=== PATIENT | female | born 1960 ===

== ENCOUNTER 2023-06-04 11:39 | Emergency (ER) | payer SELFPAY ==
[2023-06-04] VITALS (87 sets, daily range): BP systolic 90–202; BP diastolic 63–138
[2023-06-04 12:00] LABS: URINE BILIRUBIN - DIPSTICK Negative (NEGATIVE); URINE BLOOD DIPSTICK Trace-lysed (NEGATIVE); URINE GLUCOSE - DIPSTICK Negative (NEGATIVE); URINE KETONE Negative (NEGATIVE); URINE LEUK ESTERASE Negative (NEGATIVE); URINE NITRITE - DIPSTICK Negative (Negative); URINE PH 6.5 (4.5-8.0); URINE PROTEIN - DIPSTICK Negative (NEG-TRACE); URINE UROBILINOGEN - DIPSTICK 0.2 E.U./dL (0.2)
[2023-06-04 12:03] LABS: URINE COLOR Yellow
[2023-06-04 12:33] LABS: BASO% 0.7 % (0-3); EOS% 2.4 % (0-8); HEMATOCRIT 38.7 % (37.0-47.0); HEMOGLOBIN 12.6 g/dl (12.0-16.0); IMMATURE GRANULOCYTES 0.1 % (0.0-5.0); LYMPH% 30.4 % (15-41); MEAN CELL VOLUME 90.6 fL CALC (80.0-100.0); MEAN CORPUSCULAR HGB 29.5 pG CALC (26.0-32.0); MEAN CORPUSCULAR HGB CONC 32.6 g/dL CAL (32.0-36.0); MONO% 5.6 % (2-13); NEUT# 4.32 thou/uL (2.00-7.15); NEUT% 60.8 % (42-76); RED BLOOD COUNT 4.27 mill/uL (4.20-5.60); RED CELL DISTRI WIDTH 12.8 % (11.5-15.5)
[2023-06-04 12:42] LABS: ALBUMIN 4.5 g/dL (3.2-5.0); ALKALINE PHOSPHATASE 79 u/l (38-126); ANION GAP 12 (6-22 (CALC)); BILIRUBIN, TOTAL 0.4 mg/dL (0.02-1.3); BUN 9 mg/dL (8-23); BUN/CREATININE RATIO 11 (12-20 (CALC)); CARBON DIOXIDE 25 mmol/l (22-30); CHLORIDE 100 mmol/l (95-108); CREATININE 0.8 mg/dL (0.5-1.0); GFR FOR AFR.AMER. > 60 ML/MIN (>=60 (CALC)); GFR OTHER RACES > 60 ML/MIN (>=60 (CALC)); POTASSIUM 4.1 mmol/l (3.5-5.1); SGOT/AST 36 u/l (9-36); SODIUM 134 mmol/l (137-146); TOTAL CHOLESTEROL 244 mg/dl (0-199); TOTAL PROTEIN 7.5 g/dL (6.3-8.2); TOTAL TRIGLYCERIDES 88 mg/dl (0-149); VLDL CHOLESTROL 18 mg/dl (1-41 (CALC))
[2023-06-04 12:49] LABS: PROTHROMBIN TIME 9.5 SECONDS (9.0-12.5)
[2023-06-04 12:51] LABS: CALCULATED LDLCHOLESTEROL 77 mg/dL (62-129 (CALC)); CHOLESTEROL HDL RATIO 1.6 (<4.4 (CALC)); HDL CHOLESTEROL 149 mg/dL (39.0-59.0)
[2023-06-04] MEDS ORDERED: CLONAZEPAM0.5 M1 PO (17:19)
[2023-06-04] MEDS ORDERED: ESOMEPRAZOLE MA40 MG (17:20)
[2023-06-04] MEDS ORDERED: TRAZODONE HYDR150 MG (17:20)
== END 2023-06-04 23:27 | DRG 65 ==
LOC: ED 11:39
PROVIDERS: Family Medicine
PROC: 0T9B70Z Drainage of Bladder with Drainage Device, Via Natural or Artificial Opening (ICD-10-PCS; principal; 2023-06-04)
PROC: 0BH17EZ Insertion of Endotracheal Airway into Trachea, Via Natural or Artificial Opening (ICD-10-PCS; 2023-06-04)
PROC: 5A1935Z Respiratory Ventilation, Less than 24 Consecutive Hours (ICD-10-PCS; 2023-06-04)
DX: I63.9 Cerebral infarction, unspecified (principal); G93.49 Other encephalopathy; R29.722 NIHSS score 22; I10 Essential (primary) hypertension
CPT/HCPCS: J2250; Q9967